=== PATIENT | female | born 1980 | race Caucasian/White ===

== ENCOUNTER 2016-10-12 14:41 | Emergency (ER) | payer OTHER ==
[~2016-10-12] VITALS: Ht 157.5 cm; Wt 45.4 kg
[~2016-10-12 14:41] MED LIST: BACTRIM DS TAB1 EACH PO
[2016-10-12] MEDS ORDERED: MOBIC15 MG PO (16:26)
[2016-10-12 16:40] VITALS: BP 101/71
== END 2016-10-12 16:40 | disposition home or self-care (01) ==
LOC: ER 14:41
DX: S00.83XA Contusion of other part of head, initial encounter (principal); Z90.710 Acquired absence of both cervix and uterus; Z88.6 Allergy status to analgesic agent; Z88.8 Allergy status to other drugs, medicaments and biological substances; Y04.0XXA Assault by unarmed brawl or fight, initial encounter; Y93.89 Activity, other specified; Y92.038 Other place in apartment as the place of occurrence of the external cause; Y99.8 Other external cause status